=== PATIENT | male | born 1955 | race Caucasian/White ===

== ENCOUNTER 2017-03-17 11:32 | Day surgery (SDC) | payer OTHER ==
[~2017-03-17] VITALS: Ht 175.3 cm; Wt 73.0 kg
[~2017-03-17 11:32] MED LIST: ATRV10T PO; CHOL10008 PO; CITA10TA9 PO; CRB400TCR PO; Lactated Ringer's 1,000 ML IV ONE; MV,M1TAB4 PO; OMEG500C PO
[2017-03-17] MEDS ORDERED: Propofol 10 mg/mL 20 mL Inj ONE (11:33)
[2017-03-17] MEDS ORDERED: fentaNYL-PF 50 mCg/mL 2 mL Inj ONE (11:33)
[2017-03-17 12:29] VITALS: BP 114/77; PULSE 61; RESP 16; O2SAT 97
--- NOTE | 2017-03-17 13:00 | PCM.HPANE ---
Patient Data Date of Service: Mar 17, 2017 (5300) Surgeon Admitting Provider: Attending Provider:Soumya Kurtz MD Primary [facility] Physician[facility] Other Provider: Reason for Visit Polyp Of Colon Ht/WT & BMI Height (Feet): 5 Height (Inches): 9 Weight (Kilograms): 73 Body Mass Index 23.00 Allergies Coded Allergies: No Known Drug Allergies (Verified Allergy, Unknown, 03/17/17) Past Anesthesia History Anesthesia History: Denies:: Anesthesia Reactions, Difficult Intubation, Fam Anesthesia Reaction, Fam Malignant Hypertherm, Malignant Hyperthermia Diabetes History Hx Diabetes?: No MRSA MRSA: No Medications Reported Medications Mv,Minerals/FA/Lycopene/Ginkgo (One Daily Men's 50+ Tablet)1 Each Tablet1 Each PO 03/15/17 Cholecalciferol (Vitamin D3) (Vitamin D3)1,000 Unit Tab.chewUnknown Dose PO 03/15/17 Stanley-3 Fatty Acids (Fish Oil)500 Mg Capsule.dr500 Mg PO 03/15/17 Carbamazepine (Tegretol Xr)400 Mg Xeega946 Mg PO 03/15/17 Atorvastatin (Lipitor)10 Mg Tab10 Mg PO DAILY Ref 0 03/15/17 Discontinued Reported Medications Citalopram 10 Mg TabletUnknown Dose PO DAILY Ref 0 03/15/17 History History of ENT Problems?: No HEENT History: Denies:: Difficult Intubation Denture Type: None Teeth Condition: Broken Teeth Tooth Decay Hx of Heart Problems?: Yes Cardiovascular History: Positive for:: Hypertension (HYPERLIPIDEMIA) Denies:: AICD Pacemaker Valvular Heart Disease Hx of Respiratory Problem?: No Respiratory History: Denies:: Use of C-PAP Machine Hx Neurologic Problems?: No Neurological History: Denies:: CVA Hx of GI Problems?: Yes Hx of Problems?: No Hx Musculoskeletal Problems?: No Psycho Social History: Positive for:: Anxiety Hx Depression Hx Surgeries?: Yes (APPY, ) Hx Any Other Health Problems?: Yes Hx Diabetes: No Hx Alcohol Use: No Stop/Bang Treated for Sleep Apnea?: No Do You Have a CPAP Machine?: No S-Snoring: Do You Snore Loudly: No T-Tired: feel tired, fatigued: No O-Obsered: Observed not breath: No P-Blood Pressure: treated: No B- Body Mass Index > 35 kg/m2: No A- Age over 50: Yes N- Neck Large Circumference: No G- Gender Male: Yes ELENO Total Score: 2 ELENO Risk Assessment: Low Risk, <3 Yes Risk Assessment Category Category 1A: Patient has history of documented sleep apnea, and HAS NOT received any narcotic, sedative or anesthesia administration during this stay. Category 1B: Patient has history of documented sleep apnea, and HAS received any narcotic , sedative or anesthesia administration during this stay Category 2: Patient has SUSPECTED Obstructive Sleep Apnea, and HAS received any narcotic , sedative or anesthesia administration during this stay. Category 3: Patient has SUSPECTED Obstructive Sleep Apnea and HAS NOT received narcotic, sedative or anesthesia administration during this stay. Category 4: Outpatient in Procedural Areas with known sleep apnea or who screen positive for High Risk via the STOP/BANG questionnaire. Exam Exam Vital Signs Vital Signs Date Time Temp Pulse Resp B/P Pulse Ox O2 Delivery O2 Flow Rate FiO2 03/17/17 12:29 36.6 61 16 114/77 97 Room Air General Appearance: Alert, Oriented X3 HEENT/AIRWAY: MP 1 Lungs: Clear to Auscultation Heart: Exam Unremarkable Plan Impression Patient chart reviewed, patient interviewed and anesthestic plan with risks, benefits, and alternatives discussed, and informed consent obtained. NPO per Anesth. Guidelines: Yes ASA Physical Status: ASA2 Mod Systemic Disease Anesthetic Plan: GA Bene/Risks/Altern/Consents: Yes HP Complete Prior to Induction: Yes Ramiro Vázquez MD Mar 17, 2017 13:00
[2017-03-17 13:25] VITALS: BP 129/82; PULSE 62; RESP 16; O2SAT 97
[2017-03-17] MEDS ORDERED: Lactated Ringer's 1,000 ML IV SCH (13:26)
--- NOTE | 2017-03-17 13:26 | PCM.ANEP1 ---
Post Anesthesia PACU Phase 1 Assessment Vital Signs 129/82, 97%, 16, 62 Vital Signs Date Time Temp Pulse Resp B/P Pulse Ox O2 Delivery O2 Flow Rate FiO2 03/17/17 12:29 36.6 61 16 114/77 97 Room Air Anesthetic Administered: GA Level of Alertness: Awake, talking HINTON's with Equal Strength: Yes Pain: No Nausea or Vomiting: No CV Function & Hydration Stable: Yes Airway Device: none Oxygen Delivery: Room Air Lungs: Clear to Auscultation Dermatome Level: Full Sensation Summary uneventful sedation PACU Phase 2 Assessment Complications: No Follow up Care: No Patient Instructions Provided: N/A Ramiro Vázquez MD Mar 17, 2017 13:26
[2017-03-17] MEDS ORDERED: MetoCLOpramide 5 mg/mL 2 mL Inj IVPUSH PRN (13:30)
[2017-03-17] MEDS ORDERED: Ondansetron 2 mg/mL 2 mL Inj IVPUSH PRN (13:30)
[2017-03-17 13:35] VITALS: BP 131/84; PULSE 58; RESP 16; O2SAT 98
[2017-03-17 13:45] VITALS: BP 131/83; PULSE 55; RESP 16; O2SAT 95
--- NOTE | 2017-03-17 14:29 | ENDO ---
[address] [address] ENDOSCOPY PROCEDURE PATIENT: COREEN MAYFIELD : 1955 MR#: [id number] ADMIT: 03/17/2017 JOB ID: [id number] PROCEDURE: Colonoscopy. INDICATION: Screening. ANESTHESIA: The patient's ASA classification, Mallampati score, and medications as per Dr. Ramiro Vázquez's anesthesia report. INSTRUMENT USED: PCF H 180 AL PREPARATION QUALITY: Good. PROCEDURE DETAILS: After informed consent was obtained, the patient was brought into the GI suite, where he was placed on oxygen via nasal cannula and monitored with continuous pulse oximeter, telemetry, and blood pressure monitoring. A time-out was performed, then he was placed in the left lateral decubitus position and medications were administered for sedation. Digital rectal exam was performed, which was unremarkable. The colonoscope was then inserted into the rectum and advanced under direct visualization to the cecum, which was identified by the presence of the ileocecal valve and appendiceal orifice. Once the cecum was reached, the colonoscope was withdrawn back into the rectum. The mucosa and lumen were examined. In the rectum, retroflexion was performed. Following retroflexion, the remaining air in the rectum was suctioned and the procedure was completed. FINDINGS: In the cecum there was a diminutive polyp that was removed with cold biopsy forceps. Otherwise normal exam from rectum to cecum. IMPRESSION: Cecal polyp. RECOMMENDATIONS: Repeat colonoscopy in five years. COMPLICATIONS: None. ESTIMATED BLOOD LOSS: Less than 5 mL.
--- NOTE | 2017-04-05 17:08 | PATH ---
SURGICAL PATHOLOGY Attending Physician:Edgar Magallanes CASE STATUS: Signed Out PATIENT NAME: COREEN MAYFIELD PID: [id number] : 1955 DATE COLLECTED:03/17/2017 19:21 SPECIMEN: Colon, Polyp CLINICAL HISTORY: 1). CECAL POLYP X1 FINAL DIAGNOSIS: Lab Accident - notified Leonel (RUPERT) whom will notify the physician. GROSS DESCRIPTION: The specimen is received in one formalin filled container labeled with the patient's name, sublabeled "cecal polyp X. one" and consists of 2 portions of tissue which aggregate to 0.3 x 0.3 x 0.2 CM. The specimen is entirely submitted in one cassette. 03/17/2017DC ICD-9 CODES: CPT CODES: Electronically Signed Out Taurus Noel MD, Ph.D. [facility], [place] [address] Technical component performed at [facility], [address] [place] [address] [address], [address]
== END 2017-03-17 23:59 | disposition home or self-care (01) ==
LOC: END 11:32
PROVIDERS: ATTEND Internal Medicine Gastroenterology
DX: Z12.11 Encounter for screening for malignant neoplasm of colon (principal); K63.5 Polyp of colon; Z86.010 Personal history of colon polyps; J44.9 Chronic obstructive pulmonary disease, unspecified; G40.909 Epilepsy, unspecified, not intractable, without status epilepticus
CPT/HCPCS: 45380; J2250; J3010; J7120